=== PATIENT | female | born 1950 | race Caucasian/White ===

== ENCOUNTER 2019-04-21 07:53 | Day surgery (SDC) | payer OTHER ==
[~2019-04-21] VITALS: Ht 170.2 cm; Wt 108.7 kg
[~2019-04-21 07:53] MED LIST: ASPI81EC PO; CHOL10002 PO; DEXL60CA3 PO; GABA800 PO; HYDSUL200 PO; Hair, Skin & N1 EACH PO; IBUP800 PO; LEFL20 PO; LEVSOD100 PO; MAGNESIUM; METF500 PO; OMEP40CA12 PO; RAMI5 PO; SCOPTP TOP; SIMV40 PO; VICTOZA
[2019-04-21] MEDS ORDERED: TOUJEO MAX300 UNIT/1 (08:26)
[2019-04-21] MEDS ORDERED: TRULICITY1.5 MG/0.5 (08:26)
== END 2019-04-21 09:55 | disposition home or self-care (01) ==
LOC: ORSCSDS 07:53
PROVIDERS: Internal Medicine Gastroenterology
PROC: 0DBK8ZX Excision of Ascending Colon, Via Natural or Artificial Opening Endoscopic, Diagnostic (ICD-10-PCS; principal; 2019-04-21 09:15)
DX: Z12.11 Encounter for screening for malignant neoplasm of colon (principal); Z80.0 Family history of malignant neoplasm of digestive organs; D12.2 Benign neoplasm of ascending colon; K64.8 Other hemorrhoids; E66.01 Morbid (severe) obesity due to excess calories; Z68.38 Body mass index [BMI] 38.0-38.9, adult; I10 Essential (primary) hypertension; E03.9 Hypothyroidism, unspecified; Z79.82 Long term (current) use of aspirin; Z79.899 Other long term (current) drug therapy
CPT/HCPCS: 82947; 88305; J2704; J7120

== ENCOUNTER → 2019-12-23 | Outpatient (CLI) | payer OTHER ==
[~2019-12-23] MED LIST changes: +TOUJEO MAX300 UNIT/1; +TRULICITY1.5 MG/0.5
== END | disposition home or self-care (01) ==
LOC: LAB SHORT 11:20 → PLD 11:20
DX: L57.0 Actinic keratosis (principal)
CPT/HCPCS: 88305

== ENCOUNTER → 2021-03-06 | Outpatient (CLI) | payer OTHER | END | disposition home or self-care (01) | LOC: LAB SHORT 11:04 | DX: L72.11 Pilar cyst (principal) | CPT/HCPCS: 88304 ==

== ENCOUNTER → 2021-05-04 | Outpatient (CLI) | payer OTHER ==
[2021-05-04 14:34] LABS: Microalb/Creat Ratio UR, Rand 14.583 mg/g (0.000-30.000); Microalbumin, Random Urine 24.5 mg/L (0.000-20.000)
== END | disposition home or self-care (01) ==
LOC: LAB SHORT 10:45 → LAB 10:45
PROVIDERS: Internal Medicine Endocrinology, Diabetes & Metabolism
DX: E11.65 Type 2 diabetes mellitus with hyperglycemia (principal)
CPT/HCPCS: 82043; 82570

== ENCOUNTER → 2024-03-30 | Outpatient (CLI) | payer OTHER | END | disposition home or self-care (01) | LOC: LAB 17:18 → LAB SHORT 17:18 | DX: R30.0 Dysuria (principal); R35.0 Frequency of micturition; R31.9 Hematuria, unspecified | CPT/HCPCS: 87086 ==